=== PATIENT | female | born 1955 | race Caucasian/White ===

== ENCOUNTER 2016-10-09 21:30 | Emergency (ER) | payer SELFPAY ==
[~2016-10-09] VITALS: Ht 152.4 cm; Wt 88.9 kg
[~2016-10-09 21:30] MED LIST: BENA10TA2 PO; GLIM2TAB2 PO; METF10002 PO; PRAV40TA2 PO
[2016-10-09] MEDS ORDERED: LOSA25TA5 PO (23:04)
[2016-10-09] MEDS ORDERED: LINA5TAB PO (23:04)
[2016-10-09] MEDS ORDERED: PIOG30TA3 PO (23:04)
[2016-10-09 23:10] LABS: BLOOD UREA NITROGEN 15 mg/dL (7-18)
[2016-10-09 23:52] LABS: IS PT STATUS REG ER OR PRE ER? YES
[2016-10-10 00:31] VITALS: BP 114/58
== END 2016-10-10 00:40 | disposition home or self-care (01) ==
LOC: ED 23:00
DX: M13.812 Other specified arthritis, left shoulder (principal); I10 Essential (primary) hypertension; E11.9 Type 2 diabetes mellitus without complications; M54.6 Pain in thoracic spine; R07.81 Pleurodynia
CPT/HCPCS: 36415; 71010; 80048; 82040; 84484; 85025; 93005; 99285

== ENCOUNTER 2017-06-15 18:38 | Emergency (ER) | payer SELFPAY ==
[~2017-06-15] VITALS: Ht 149.9 cm; Wt 83.9 kg
[~2017-06-15 18:38] MED LIST changes: +LINA5TAB PO; +LOSA25TA5 PO; +PIOG30TA3 PO
[2017-06-15 18:47] VITALS: BP 145/75
[2017-06-15 19:10] LABS: BASOPHILS # (AUTO) 0.02 x10^3/uL (0-0.1); BASOPHILS % (AUTO) 0 % (0-1); EOSINOPHILS # (AUTO) 0.33 x10^3/uL (0-0.4); EOSINOPHILS % (AUTO) 4 % (1-7); LYMPHOCYTES # (AUTO) 3.63 x10^3/uL (1-3.4); LYMPHOCYTES % (AUTO) 46 % (22-44); MD NO; MEAN CORPUSCULAR HGB CONC 33.9 g/dL (32.4-35.8); MEAN CORPUSCULAR VOLUME 91.5 fL (80-100); MEAN PLATELET VOLUME 8.6 fL (7.4-10.4); MONOCYTES # (AUTO) 0.64 x10^3/uL (0.2-0.8); MONOCYTES % (AUTO) 8 % (2-9); NEUTROPHILS # (AUTO) 3.28 x10^3/uL (1.8-6.8); NEUTROPHILS % (AUTO) 42 % (42-75); PLATELET COUNT 222 x10^3/uL (130-400); RED BLOOD COUNT 4.33 x10^6/uL (3.82-5.3); RED CELL DISTRIBUTION WIDTH 13.5 % (9.6-15.2)
[2017-06-15 19:21] LABS: ALBUMIN 4.2 g/dL (3.4-5.0); ANION GAP 7 mmol/L (5-15); CALCIUM 9.1 mg/dL (8.5-10.1); CHLORIDE 103 mmol/L (98-107); CREATININE 0.61 mg/dL (0.55-1.02)
[2017-06-15] MEDS ORDERED: CEFTRIAXONE 1,000 MG IM ONE (20:30)
[2017-06-15] MEDS ORDERED: CEFTRIAXONE 1,000 MG ONE (20:46)
[2017-06-15] MEDS ORDERED: LIDOCAINE-MPF 1%, 2ML ONE (20:46)
== END 2017-06-15 21:37 | disposition home or self-care (01) ==
LOC: ED 19:00
DX: L03.311 Cellulitis of abdominal wall (principal); E78.5 Hyperlipidemia, unspecified; I10 Essential (primary) hypertension; M19.90 Unspecified osteoarthritis, unspecified site
CPT/HCPCS: 36415; 80048; 82040; 85025; 96372; 99284; J0696